=== PATIENT | female | born 1950 | race Hispanic/Latino ===

== ENCOUNTER 2018-09-24 13:16 | Observation (INO) | payer MEDICARE, OTHER, SELFPAY ==
[2018-09-24] VITALS (9 sets, daily range): BP systolic 118–162; BP diastolic 68–81; PULSE 62–72; RESP 12–22; TEMP 36.5–36.6; O2SAT 95–99; BMI 32.1
--- NOTE | 2018-09-24 14:21 | PC.NURSE ---
Patient has long standing history of vertigo. 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 Has felt bilateral ear pressure recently
--- NOTE | 2018-09-24 14:26 | DI.RAD.S_ITS ---
PROCEDURE: XR CHEST 1V INDICATIONS: dizziness TECHNIQUE: One view of the chest was acquired. COMPARISON: None. FINDINGS: Surgical changes and devices: None. Lungs and pleura: Lungs are clear. No pleural effusions or pneumothorax. Mediastinum: Mediastinal contours appear normal. Heart size is mildly enlarged. There is aortic atherosclerosis. Bones and chest wall: No suspicious bony lesions. Overlying soft tissues appear unremarkable. IMPRESSION: Cardiomegaly without overt heart failure. No definite pneumonia. Dictated by: Zhen Boone M.D. on 09/24/2018 at 14:49 Approved by: Zhen Boone M.D. on 09/24/2018 at 14:56
--- NOTE | 2018-09-24 14:26 | DI.CT.S_ITS ---
PROCEDURE: CT HEAD/BRAIN WO CON INDICATIONS: dizzy TECHNIQUE: Noncontrast 4.5 mm thick angled axial sections acquired from the foramen magnum to the vertex, with coronal and sagittal reformats. For radiation dose reduction, the following was used: automated exposure control, adjustment of mA and/or kV according to patient size. COMPARISON: None. FINDINGS: Image quality: Excellent. CSF spaces: Basal cisterns are patent. No extra-axial fluid collections. Ventricles are normal in size and shape. Brain: No midline shift. No intracranial masses or hemorrhage. Zhang-white matter interface is normal. Skull and face: Calvarium and visualized facial bones are intact, without suspicious lesions. Sinuses: Visualized sinuses and mastoids are clear. IMPRESSION: Unremarkable head CT. No acute intracranial hemorrhage. Dictated by: Zhen Boone M.D. on 09/24/2018 at 15:03 Approved by: Zhen Boone M.D. on 09/24/2018 at 15:06
[2018-09-24] MEDS: MECLIZINE HCL 12.5 MG TABLET 25 MG PO ×2 (14:31→15:29)
[2018-09-24] MEDS: ONDANSETRON 4 MG/2 ML INJ IV (14:31)
[2018-09-24 14:58] LABS: Add Manual Diff / Slide Review NO; Basophils Absolute Auto 100 /uL (0-100); Basophils Percent Auto 0.7 % (0-2); Eosinophils Absolute Auto 300 /uL (0-450); Eosinophils Percent Auto 2.9 % (2-4); Hematocrit 45.4 % (36-46); Hemoglobin 15.5 g/dL (12.0-16.0); Lymphocytes Absolute Auto 3300 /uL (1100-4500); Lymphocytes Percent Auto 30.4 % (25-40); Mean Corpuscular HGB Conc 34.3 % (30-36); Mean Corpuscular Hemoglobin 31.3 PG (26-34); Mean Corpuscular Volume 91.3 fL (80-100); Monocytes Absolute Auto 700 /uL (0-900); Monocytes Percent Auto 6.4 % (3-14); Neutrophils Absolute Auto 6400 /uL (1500-7000); Neutrophils Percent Auto 59.6 % (50-75); Platelet Count 197 X10^3/uL (150-400); Red Blood Cell Count 4.97 X10^6/uL (4.0-5.2); Red Cell Distribution Width 13.5 % (11.6-14.8); White Blood Cell Count 10.8 X10^3/uL (4.5-11.0)
[2018-09-24 15:05] LABS: Prothrombin Time 11.8 SECONDS (10.1-12.7)
[2018-09-24 15:11] LABS: Alanine Aminotransferase 38 IU/L (9-52); Albumin 4.4 g/dL (3.5-5.0); Albumin Globulin Ratio 1.2 (1.0-2.8); Alkaline Phosphatase 153 U/L (38-126); Aspartate Aminotransferase 32 IU/L (14-36); BUN Creatinine Ratio 13.8 (6-22); Bilirubin Total 0.6 mg/dL (0.2-1.3); Blood Urea Nitrogen 11 mg/dL (7-17); Calcium 9.6 mg/dL (8.4-10.2); Carbon Dioxide 25 mmol/L (22-32); Chloride 105 mmol/L (98-107); Estimated Glomerular Filt Rate > 60.0 mL/min (>60); Globulin 3.6 g/dL (1.7-4.1); Glucose 109 mg/dL (80-110); HEMOLYSIS < 15 (0-50); Potassium 3.8 mmol/L (3.4-5.1); Sodium 140 mmol/L (137-145)
[2018-09-24 15:22] LABS: Troponin I < 0.012 ng/mL (0.01-0.034)
--- NOTE | 2018-09-24 15:26 | ED.DIZZY ---
HPI - Dizziness <JUDITH Mcdaniel - Last Filed: 09/24/18 20:48> General Chief Complaint: Dizziness Stated Complaint: Vertigo Time Seen by Provider: 09/24/18 14:10 Source: patient, family and EMS Mode of arrival: EMS Limitations: no limitations History of Present Illness HPI Narrative: The patient is a 60-year-old female with history of Meniere's diseaseCurrent smoker who presents with a chief complaint of sudden onset of dizziness. She states she has vertigo every single day. She noticed it was worse when she woke up at 9:00 a.m. this morning. She states she sat in her vertigo resolved a bit. Then she was getting her hair done and had a sudden onset of spinning sensation when she put her head in the back sink to have her hair washed. She denies any chest pain, shortness of breath abdominal pain. She does complain of some nausea. She states her Meniere's disease was diagnosed by an ear nose and throat physicians several years ago. She has not followed up with them. She states she does not take any daily medications for this. She does complain of persistent ?humming noises related to her disease, but those are no worse than usual. She denies any fever. She denies any urinary symptoms. She denies any surgical history of . She states she takes an aspirin a day and that is it. Related Data Previous Rx's Medication Instructions Recorded hydrochlorothiazide 25 mg PO DAILY #30 tab 09/25/18 meclizine 25 mg PO Q6HR PRN #60 tab 09/25/18 ondansetron HCl 4 mg PO Q8HR PRN #30 tab 09/25/18 Allergies Allergy/AdvReac Type Severity Reaction Status Date / Time No Known Drug Allergies Allergy Verified 09/24/18 14:10 Review of Systems <JUDITH Mcdaniel - Last Filed: 09/24/18 20:48> Review of Systems GENERAL: Denies chills, fatigue, malaise, fever, sweats. HEENT: Denies sinus pain, ear pain, sore throat, difficulty swallowing, dizziness. RESPIRATORY: Denies dyspnea, cough, wheezing, hemoptysis, sputum. CARDIOVASCULAR: Denies chest pain, palpitations, orthopnea, edema, GASTROINTESTINAL: See HPI : Denies dysuria, frequency, incontinence, hematuria, urinary retention. MUSCULOSKELETAL: denies weakness, joint pain, or bony pain SKIN: Denies rash, skin lesions, or other NEUROLOGIC: See HPI PSYCHIATRIC: No concerning psychosocial issues. 12 point review of systems is negative except for those stated above PFSH <JUDITH Mcdaniel - Last Filed: 09/24/18 20:48> Medical History Current smoker (Acute) Meniere disease (Acute) Surgical History History of (Acute) Social History household members: spouse Smoking Status: Current some day smoker Social History household members: spouse Smoking Status: Current some day smoker Exam <JUDITH Mcdaniel - Last Filed: 09/24/18 20:48> Narrative Exam Narrative: GENERAL: This is a well-nourished, well-developed patient, appears uncomfortable HEAD: Atraumatic. Normocephalic. No temporal or scalp tenderness. EYES: Pupils equal round and reactive. Extraocular motions intact. No scleral icterus. No injection or drainage. Slight nystagmus noted. ENT: Nose without bleeding, purulent drainage or septal hematoma. Throat without erythema, tonsillar hypertrophy or exudate. Uvula midline. Airway patent. NECK: Trachea midline. No JVD or lymphadenopathy. Supple, nontender, no meningeal signs. CARDIOVASCULAR: Regular rate and rhythm without murmurs, gallops, or rubs. RESPIRATORY: Clear to auscultation. Breath sounds equal bilaterally. No wheezes, rales, or rhonchi. No cough. No increased respiratory effort. No accessory muscle use. GASTROINTESTINAL: Abdomen soft, non-tender, nondistended. No hepato-splenomegaly, or palpable masses. No guarding. EXTREMITIES: No clubbing, cyanosis, or edema. No joint tenderness, effusion, or edema noted. BACK: Nontender without deformity or crepitance. No flank tenderness. NEURO: AOx3. Strength is equal upper and lower extremities bilaterally. No gross cranial nerve deficit. Remote and recent memory intact. Finger-nose test intact. Should heal test intact. Negative Romberg when lying on stretcher SKIN: No rash or erythema. Initial Vital Signs Initial Vital Signs: Vital Signs Temperature 97.9 F 09/24/18 13:25 Pulse Rate 66 09/24/18 13:25 Respiratory Rate 18 09/24/18 13:25 Blood Pressure 160/77 H 09/24/18 13:25 Pulse Oximetry 97 09/24/18 13:25 <Malu Helton DO - Last Filed: 09/28/18 07:43> Narrative Exam Narrative: GENERAL: Alert and oriented x three, obese, well-appearing female in mild distress. HEENT: Head normocephalic, atraumatic, EOMI, pupils reactive, face symmetric, moist mucous membranes, no facial droop. No dysarthria. NECK: Supple, full range of motion CARDIOVASCULAR: Regular rate and rhythm without murmurs, rubs or gallops. RESPIRATORY: Breath sounds equal bilaterally, no wheezes rales or rhonchi. ABDOMEN: Soft, nontender. Normoactive bowel sounds all 4 quadrants. No guarding or rebound, rigidity, no mass EXTREMITIES: Normal range of motion, no clubbing or edema. Neurovascularly intact NEUROLOGICAL: Cranial nerves II through XII grossly intact. Moving all extremities SKIN: Warm, dry, no petechiae, no rashes or lesions. Initial Vital Signs Initial Vital Signs: Vital Signs Temperature 97.9 F 09/24/18 13:25 Pulse Rate 66 09/24/18 13:25 Respiratory Rate 18 09/24/18 13:25 Blood Pressure 160/77 H 09/24/18 13:25 Pulse Oximetry 97 09/24/18 13:25 Scores <KINDRA Mcdaniel-BC - Last Filed: 09/24/18 20:48> GCS [place] coma scale eye opening: Spontaneous [place] coma scale verbal response: Orientated [place] coma scale motor response: Obey commands [place] coma scale total score: 15 NIH Stroke Scale Level of Conciousness: Alert, keenly responsive Ask month/age: Answers both questions correctly. Open/close eyes, close hand: Performs both tasks correctly Best gaze horizontal: Normal Visual lu: No visual loss Facial palsy: Normal symetrical movement Left arm drift: No drift for full 10 sec Right arm drift: No drift for full 10 sec Left leg drift: No drift for full 10 sec Right leg drift: No drift for full 10 sec Limb ataxia: Absent Sensory on face/arms/legs: Normal, no sensory loss Best language: No aphasia, normal Dysarthria: Normal Extinction or inattention: No abnormality Total NIH Stroke scale score: 0 <aMlu Helton DO - Last Filed: 09/28/18 07:43> NIH Stroke Scale Level of Conciousness: Alert, keenly responsive Ask month/age: Answers both questions correctly. Open/close eyes, close hand: Performs both tasks correctly Best gaze horizontal: Normal Visual lu: No visual loss Facial palsy: Normal symetrical movement Left arm drift: No drift for full 10 sec Right arm drift: No drift for full 10 sec Left leg drift: No drift for full 10 sec Right leg drift: No drift for full 10 sec Limb ataxia: Absent Sensory on face/arms/legs: Normal, no sensory loss Best language: No aphasia, normal Dysarthria: Normal Extinction or inattention: No abnormality Total NIH Stroke scale score: 0 Course <KRISTINE Mcdaniel - Last Filed: 09/24/18 20:48> Orders Ordered: Discontinued Medications Acetaminophen (Tylenol) 650 mg PO Q6HR PRN PRN Reason: Fever Aspirin (Aspirin Ec) 81 mg PO DAILY [facility] Last Admin: 09/25/18 09:57 Dose: 81 mg Admin: 09/24/18 21:58 Dose: 81 mg Enoxaparin Sodium (Lovenox) 40 mg SUBCUT DAILY [facility] Last Admin: 09/25/18 09:57 Dose: 40 mg Furosemide (Lasix) 20 mg IV DAILY [facility] Hydrochlorothiazide (Hydrochlorothiazide) 25 mg PO DAILY [facility] Last Admin: 09/25/18 09:57 Dose: 25 mg Sodium Chloride (Normal Saline 0.9%) 1,000 mls @ 100 mls/hr IV CONT [facility] Last Infusion: 09/25/18 09:48 Dose: 0 mls/hr Admin: 09/24/18 21:44 Dose: 100 mls/hr Ibuprofen (Advil) 600 mg PO Q8HR PRN PRN Reason: Headache Last Admin: 09/25/18 17:15 Dose: 600 mg Lorazepam (Ativan) 1 mg PO NOW ONE Stop: 09/24/18 15:51 Last Admin: 09/24/18 16:05 Dose: 1 mg Lorazepam (Ativan) 1 mg IV NOW ONE Stop: 09/24/18 16:48 Last Admin: 09/24/18 17:33 Dose: 1 mg Lorazepam (Ativan) 1 mg PO Q6HR PRN PRN Reason: Vertigo Meclizine HCl (Antivert) 25 mg PO NOW ONE Stop: 09/24/18 14:26 Last Admin: 09/24/18 14:31 Dose: 25 mg Meclizine HCl (Antivert) 25 mg PO NOW ONE Stop: 09/24/18 15:25 Last Admin: 09/24/18 15:29 Dose: 25 mg Meclizine HCl (Antivert) 25 mg PO Q6HR PRN PRN Reason: Vertigo Last Admin: 09/25/18 17:16 Dose: 25 mg Admin: 09/25/18 09:57 Dose: 25 mg Morphine Sulfate (Morphine) 2 mg IV Q4HR PRN PRN Reason: Pain, Moderate (4-6) Naloxone HCl (Narcan) 0.2 mg IV Q2MIN PRN PRN Reason: Opiate Reversal Ondansetron HCl (Zofran) 4 mg IV NOW ONE Stop: 09/24/18 14:26 Last Admin: 09/24/18 14:31 Dose: 4 mg Ondansetron HCl (Zofran) 8 mg IV Q8HR PRN PRN Reason: Nausea And Vomiting Scopolamine (Transderm-Scop) 1 patch TOP NOW ONE Stop: 09/24/18 18:05 Last Admin: 09/24/18 18:19 Dose: 1 patch Scopolamine (Transderm-Scop) 1 patch TOP Q72H [facility] Last Admin: 09/24/18 21:44 Dose: Not Given Vital Signs - 8 hr 09/24/18 13:25 09/24/18 14:09 09/24/18 15:32 Pulse Rate 66 66 62 Respiratory Rate 18 18 20 Blood Pressure 160/77 H 160/77 H Blood Pressure [Left Arm] 160/77 H 154/81 H Pulse Oximetry 97 97 99 09/24/18 16:30 09/24/18 18:30 09/24/18 19:36 Pulse Rate 65 67 65 Respiratory Rate 22 12 15 Blood Pressure Blood Pressure [Left Arm] 162/71 H 118/68 121/77 Pulse Oximetry 95 96 95 09/24/18 20:21 Pulse Rate 72 Respiratory Rate 15 Blood Pressure Blood Pressure [Left Arm] 132/70 Pulse Oximetry 97 <Malu Helton, - Last Filed: 09/28/18 07:43> Orders Ordered: Discontinued Medications Acetaminophen (Tylenol) 650 mg PO Q6HR PRN PRN Reason: Fever Aspirin (Aspirin Ec) 81 mg PO DAILY [facility] Last Admin: 09/25/18 09:57 Dose: 81 mg Admin: 09/24/18 21:58 Dose: 81 mg Enoxaparin Sodium (Lovenox) 40 mg SUBCUT DAILY [facility] Last Admin: 09/25/18 09:57 Dose: 40 mg Furosemide (Lasix) 20 mg IV DAILY [facility] Hydrochlorothiazide (Hydrochlorothiazide) 25 mg PO DAILY [facility] Last Admin: 09/25/18 09:57 Dose: 25 mg Sodium Chloride (Normal Saline 0.9%) 1,000 mls @ 100 mls/hr IV CONT [facility] Last Infusion: 09/25/18 09:48 Dose: 0 mls/hr Admin: 09/24/18 21:44 Dose: 100 mls/hr Ibuprofen (Advil) 600 mg PO Q8HR PRN PRN Reason: Headache Last Admin: 09/25/18 17:15 Dose: 600 mg Lorazepam (Ativan) 1 mg PO NOW ONE Stop: 09/24/18 15:51 Last Admin: 09/24/18 16:05 Dose: 1 mg Lorazepam (Ativan) 1 mg IV NOW ONE Stop: 09/24/18 16:48 Last Admin: 09/24/18 17:33 Dose: 1 mg Lorazepam (Ativan) 1 mg PO Q6HR PRN PRN Reason: Vertigo Meclizine HCl (Antivert) 25 mg PO NOW ONE Stop: 09/24/18 14:26 Last Admin: 09/24/18 14:31 Dose: 25 mg Meclizine HCl (Antivert) 25 mg PO NOW ONE Stop: 09/24/18 15:25 Last Admin: 09/24/18 15:29 Dose: 25 mg Meclizine HCl (Antivert) 25 mg PO Q6HR PRN PRN Reason: Vertigo Last Admin: 09/25/18 17:16 Dose: 25 mg Admin: 09/25/18 09:57 Dose: 25 mg Morphine Sulfate (Morphine) 2 mg IV Q4HR PRN PRN Reason: Pain, Moderate (4-6) Naloxone HCl (Narcan) 0.2 mg IV Q2MIN PRN PRN Reason: Opiate Reversal Ondansetron HCl (Zofran) 4 mg IV NOW ONE Stop: 09/24/18 14:26 Last Admin: 09/24/18 14:31 Dose: 4 mg Ondansetron HCl (Zofran) 8 mg IV Q8HR PRN PRN Reason: Nausea And Vomiting Scopolamine (Transderm-Scop) 1 patch TOP NOW ONE Stop: 09/24/18 18:05 Last Admin: 09/24/18 18:19 Dose: 1 patch Scopolamine (Transderm-Scop) 1 patch TOP Q72H [facility] Last Admin: 09/24/18 21:44 Dose: Not Given Vital Signs - 8 hr 09/24/18 13:25 09/24/18 14:09 09/24/18 15:32 Pulse Rate 66 66 62 Respiratory Rate 18 18 20 Blood Pressure 160/77 H 160/77 H Blood Pressure [Left Arm] 160/77 H 154/81 H Pulse Oximetry 97 97 99 09/24/18 16:30 09/24/18 18:30 09/24/18 19:36 Pulse Rate 65 67 65 Respiratory Rate 22 12 15 Blood Pressure Blood Pressure [Left Arm] 162/71 H 118/68 121/77 Pulse Oximetry 95 96 95 09/24/18 20:21 Pulse Rate 72 Respiratory Rate 15 Blood Pressure Blood Pressure [Left Arm] 132/70 Pulse Oximetry 97 MDM - Dizziness <KINDRA Mcdaniel-FEDERICO - Last Filed: 09/24/18 20:48> Lab Data Result diagrams: 09/24/18 14:50 09/25/18 05:20 Lab Results 09/24/18 09/24/18 09/24/18 Range/Units 14:50 14:50 14:50 WBC 10.8 (4.5-11.0) X10^3/uL RBC 4.97 (4.0-5.2) X10^6/uL Hgb 15.5 (12.0-16.0) g/dL Hct 45.4 (36-46) % MCV 91.3 (80-100) fL MCH 31.3 (26-34) PG MCHC 34.3 (30-36) % RDW 13.5 (11.6-14.8) % Plt Count 197 (150-400) X10^3/uL Neut % (Auto) 59.6 (50-75) % Lymph % (Auto) 30.4 (25-40) % [place] % (Auto) 6.4 (3-14) % Eos % (Auto) 2.9 (2-4) % Baso % (Auto) 0.7 (0-2) % Neut # (Auto) 6400 (4282-1185) /uL Lymph # (Auto) 3300 (9965-6675) /uL [place] # (Auto) 700 (0-900) /uL Eos # (Auto) 300 (0-450) /uL Baso # (Auto) 100 (0-100) /uL PT 11.8 (10.1-12.7) SECONDS INR 1.0 (0.9-1.3) Sodium 140 (137-145) mmol/L Potassium 3.8 (3.4-5.1) mmol/L Chloride 105 (98-107) mmol/L Carbon Dioxide 25 (22-32) mmol/L BUN 11 (7-17) mg/dL Creatinine 0.80 (0.52-1.04) mg/dL Estimated GFR > 60.0 (>60) mL/min BUN/Creatinine Ratio 13.8 (6-22) Glucose 109 (80-110) mg/dL Calcium 9.6 (8.4-10.2) mg/dL Magnesium (1.6-2.3) mg/dL Total Bilirubin 0.6 (0.2-1.3) mg/dL AST 32 (14-36) IU/L ALT 38 (9-52) IU/L Alkaline Phosphatase 153 H (38-126) U/L Troponin I < 0.012 (0.01-0.034) ng/mL Total Protein 8.0 (6.3-8.2) g/dL Albumin 4.4 (3.5-5.0) g/dL Globulin 3.6 (1.7-4.1) g/dL Albumin/Globulin Ratio 1.2 (1.0-2.8) Triglycerides (35-150) mg/dL Cholesterol (140-199) mg/dL LDL Cholesterol, Calc (<100) mg/dL HDL Cholesterol (40-60) mg/dL TSH (0.47-4.68) uIU/mL Urine Color Urine Appearance Urine pH (4.5-8.0) Ur Specific [place] (1.000-1.035) Urine Protein (Negative) Urine Glucose (UA) (Negative) g/dL Urine Ketones (NEGATIVE) Urine Occult Blood (Negative) Urine Nitrate (Negative) Urine Bilirubin (NEGATIVE) Urine Urobilinogen (0.2) E.U./dL Ur Leukocyte Esterase (NEGATIVE) 09/25/18 09/25/18 09/25/18 Range/Units 00:15 05:20 05:20 WBC (4.5-11.0) X10^3/uL RBC (4.0-5.2) X10^6/uL Hgb (12.0-16.0) g/dL Hct (36-46) % MCV (80-100) fL MCH (26-34) PG MCHC (30-36) % RDW (11.6-14.8) % Plt Count (150-400) X10^3/uL Neut % (Auto) (50-75) % Lymph % (Auto) (25-40) % [place] % (Auto) (3-14) % Eos % (Auto) (2-4) % Baso % (Auto) (0-2) % Neut # (Auto) (5627-1083) /uL Lymph # (Auto) (5439-7243) /uL [place] # (Auto) (0-900) /uL Eos # (Auto) (0-450) /uL Baso # (Auto) (0-100) /uL PT (10.1-12.7) SECONDS INR (0.9-1.3) Sodium 140 (137-145) mmol/L Potassium 3.9 (3.4-5.1) mmol/L Chloride 108 H (98-107) mmol/L Carbon Dioxide 26 (22-32) mmol/L BUN 9 (7-17) mg/dL Creatinine 0.70 (0.52-1.04) mg/dL Estimated GFR > 60.0 (>60) mL/min BUN/Creatinine Ratio 12.9 (6-22) Glucose 109 (80-110) mg/dL Calcium 9.0 (8.4-10.2) mg/dL Magnesium 2.0 (1.6-2.3) mg/dL Total Bilirubin (0.2-1.3) mg/dL AST (14-36) IU/L ALT (9-52) IU/L Alkaline Phosphatase (38-126) U/L Troponin I (0.01-0.034) ng/mL Total Protein (6.3-8.2) g/dL Albumin (3.5-5.0) g/dL Globulin (1.7-4.1) g/dL Albumin/Globulin Ratio (1.0-2.8) Triglycerides 205 H (35-150) mg/dL Cholesterol 250 H (140-199) mg/dL LDL Cholesterol, Calc 171 H (<100) mg/dL HDL Cholesterol 38 L (40-60) mg/dL TSH (0.47-4.68) uIU/mL Urine Color Yellow Urine Appearance Clear Urine pH 7.0 (4.5-8.0) Ur Specific [place] 1.010 (1.000-1.035) Urine Protein Negative (Negative) Urine Glucose (UA) Negative (Negative) g/dL Urine Ketones Negative (NEGATIVE) Urine Occult Blood Negative (Negative) Urine Nitrate Negative (Negative) Urine Bilirubin Negative (NEGATIVE) Urine Urobilinogen 0.2 (0.2) E.U./dL Ur Leukocyte Esterase Negative (NEGATIVE) 09/25/18 Range/Units 05:20 WBC (4.5-11.0) X10^3/uL RBC (4.0-5.2) X10^6/uL Hgb (12.0-16.0) g/dL Hct (36-46) % MCV (80-100) fL MCH (26-34) PG MCHC (30-36) % RDW (11.6-14.8) % Plt Count (150-400) X10^3/uL Neut % (Auto) (50-75) % Lymph % (Auto) (25-40) % [place] % (Auto) (3-14) % Eos % (Auto) (2-4) % Baso % (Auto) (0-2) % Neut # (Auto) (6389-5460) /uL Lymph # (Auto) (7529-4711) /uL [place] # (Auto) (0-900) /uL Eos # (Auto) (0-450) /uL Baso # (Auto) (0-100) /uL PT (10.1-12.7) SECONDS INR (0.9-1.3) Sodium (137-145) mmol/L Potassium (3.4-5.1) mmol/L Chloride (98-107) mmol/L Carbon Dioxide (22-32) mmol/L BUN (7-17) mg/dL Creatinine (0.52-1.04) mg/dL Estimated GFR (>60) mL/min BUN/Creatinine Ratio (6-22) Glucose (80-110) mg/dL Calcium (8.4-10.2) mg/dL Magnesium (1.6-2.3) mg/dL Total Bilirubin (0.2-1.3) mg/dL AST (14-36) IU/L ALT (9-52) IU/L Alkaline Phosphatase (38-126) U/L Troponin I (0.01-0.034) ng/mL Total Protein (6.3-8.2) g/dL Albumin (3.5-5.0) g/dL Globulin (1.7-4.1) g/dL Albumin/Globulin Ratio (1.0-2.8) Triglycerides (35-150) mg/dL Cholesterol (140-199) mg/dL LDL Cholesterol, Calc (<100) mg/dL HDL Cholesterol (40-60) mg/dL TSH 1.70 (0.47-4.68) uIU/mL Urine Color Urine Appearance Urine pH (4.5-8.0) Ur Specific [place] (1.000-1.035) Urine Protein (Negative) Urine Glucose (UA) (Negative) g/dL Urine Ketones (NEGATIVE) Urine Occult Blood (Negative) Urine Nitrate (Negative) Urine Bilirubin (NEGATIVE) Urine Urobilinogen (0.2) E.U./dL Ur Leukocyte Esterase (NEGATIVE) Urine Dip Bedside Urine Glucose Negative Bedside Urine Bilirubin - Negative Bedside Urine Ketone - Negative Urine Specific [place] 1.015 Bedside Urine Occult Blood - Negative Bedside Urine pH 6 Bedside Urine Protein - Negative Bedside Urine Urobilinogen - Negative Bedside Urine Nitrite - Negative Bedside Urine Leukocytes - Negative Esterase Imaging Data CT scan - head: Radiologist's impression: Danya Baez 68 F [address] [address] [address] Scan Report Signed Patient: Danya BaezMR#: [id number] : 1950Acct:[id number] Age/Sex: 68 / FDate of Service: 09/24/18 Loc: ED Accession Number: [id number] Procedure: CT head/brain wo con Ordering Provider: Malu Hollins PROCEDURE: CT HEAD/BRAIN WO CON INDICATIONS: dizzy TECHNIQUE: Noncontrast 4.5 mm thick angled axial sections acquired from the foramen magnum to the vertex, with coronal and sagittal reformats. For radiation dose reduction, the following was used: automated exposure control, adjustment of mA and/or kV according to patient size. COMPARISON: None. FINDINGS: Image quality: Excellent. CSF spaces: Basal cisterns are patent. No extra-axial fluid collections. Ventricles are normal in size and shape. Brain: No midline shift. No intracranial masses or hemorrhage. Zhang-white matter interface is normal. Skull and face: Calvarium and visualized facial bones are intact, without suspicious lesions. Sinuses: Visualized sinuses and mastoids are clear. IMPRESSION: Unremarkable head CT. No acute intracranial hemorrhage. Dictated by: Zhen Boone M.D. on 09/24/2018 at 15:03 Approved by: Zhen Boone M.D. on 09/24/2018 at 15:06 Chest x-ray: Radiologist's impression: Danya Baez 68 F [address] [address] XRay Report Signed Patient: Danya BaezMR#: [id number] : 1950Acct:[id number] Age/Sex: 68 / FDate of Service: 09/24/18 Loc: ED Accession Number: [id number] Procedure: XR chest 1V Ordering Provider: Malu Hollins PROCEDURE: XR CHEST 1V INDICATIONS: dizziness TECHNIQUE: One view of the chest was acquired. COMPARISON: None. FINDINGS: Surgical changes and devices: None. Lungs and pleura: Lungs are clear. No pleural effusions or pneumothorax. Mediastinum: Mediastinal contours appear normal. Heart size is mildly enlarged. There is aortic atherosclerosis. Bones and chest wall: No suspicious bony lesions. Overlying soft tissues appear unremarkable. IMPRESSION: Cardiomegaly without overt heart failure. No definite pneumonia. Dictated by: Zhen Boone M.D. on 09/24/2018 at 14:49 Approved by: Zhen Boone M.D. on 09/24/2018 at 14:56 ECG Data Attestation: I personally reviewed and interpreted this ECG as follows: Interpretation: Sinus rhythm. Ventricular rate 60. No ST elevation or depression noted. No ectopy noted. Viewed by Dr. Helton at 1501 pr 156 MDM Narrative Medical decision making narrative: Patient is a 68-year-old female history of Meniere's disease who presents with a chief complaint of dizziness and vertigo symptoms. She has a negative troponin, negative head CT, negative chest x-ray negative UA and grossly normal lab work. She is overall benign neurological exam. She is given 2 doses of meclizine, fluids and p.o. Ativan at for her symptoms. She vomited after all this and was given IV Ativan. She had persistent spinning sensation. Given my concerns, I asked Dr Helton to evaluate the patient as well. I spoke with Dr. sepulveda regarding admitting patient she was unable to ambulate and unable to keep down fluids. She requested scopolamine patch as well as Marly's maneuvers prior to admitting the patient. Scopolamine patch was applied and Marly's maneuvers were performed with no improvement. I then spoke with Jewel SINCLAIR, who came to evaluate the patient and accepted her for admission. Patient states agreement with admission has no questions or concerns. <Malu Helton, DO - Last Filed: 09/28/18 07:43> Lab Data Attestation: I reviewed the patient's lab results. Lab Results 09/24/18 09/24/18 09/24/18 Range/Units 14:50 14:50 14:50 WBC 10.8 (4.5-11.0) X10^3/uL RBC 4.97 (4.0-5.2) X10^6/uL Hgb 15.5 (12.0-16.0) g/dL Hct 45.4 (36-46) % MCV 91.3 (80-100) fL MCH 31.3 (26-34) PG MCHC 34.3 (30-36) % RDW 13.5 (11.6-14.8) % Plt Count 197 (150-400) X10^3/uL Neut % (Auto) 59.6 (50-75) % Lymph % (Auto) 30.4 (25-40) % [place] % (Auto) 6.4 (3-14) % Eos % (Auto) 2.9 (2-4) % Baso % (Auto) 0.7 (0-2) % Neut # (Auto) 6400 (8293-1297) /uL Lymph # (Auto) 3300 (3377-3337) /uL [place] # (Auto) 700 (0-900) /uL Eos # (Auto) 300 (0-450) /uL Baso # (Auto) 100 (0-100) /uL PT 11.8 (10.1-12.7) SECONDS INR 1.0 (0.9-1.3) Sodium 140 (137-145) mmol/L Potassium 3.8 (3.4-5.1) mmol/L Chloride 105 (98-107) mmol/L Carbon Dioxide 25 (22-32) mmol/L BUN 11 (7-17) mg/dL Creatinine 0.80 (0.52-1.04) mg/dL Estimated GFR > 60.0 (>60) mL/min BUN/Creatinine Ratio 13.8 (6-22) Glucose 109 (80-110) mg/dL Calcium 9.6 (8.4-10.2) mg/dL Magnesium (1.6-2.3) mg/dL Total Bilirubin 0.6 (0.2-1.3) mg/dL AST 32 (14-36) IU/L ALT 38 (9-52) IU/L Alkaline Phosphatase 153 H (38-126) U/L Troponin I < 0.012 (0.01-0.034) ng/mL Total Protein 8.0 (6.3-8.2) g/dL Albumin 4.4 (3.5-5.0) g/dL Globulin 3.6 (1.7-4.1) g/dL Albumin/Globulin Ratio 1.2 (1.0-2.8) Triglycerides (35-150) mg/dL Cholesterol (140-199) mg/dL LDL Cholesterol, Calc (<100) mg/dL HDL Cholesterol (40-60) mg/dL TSH (0.47-4.68) uIU/mL Urine Color Urine Appearance Urine pH (4.5-8.0) Ur Specific [place] (1.000-1.035) Urine Protein (Negative) Urine Glucose (UA) (Negative) g/dL Urine Ketones (NEGATIVE) Urine Occult Blood (Negative) Urine Nitrate (Negative) Urine Bilirubin (NEGATIVE) Urine Urobilinogen (0.2) E.U./dL Ur Leukocyte Esterase (NEGATIVE) 09/25/18 09/25/18 09/25/18 Range/Units 00:15 05:20 05:20 WBC (4.5-11.0) X10^3/uL RBC (4.0-5.2) X10^6/uL Hgb (12.0-16.0) g/dL Hct (36-46) % MCV (80-100) fL MCH (26-34) PG MCHC (30-36) % RDW (11.6-14.8) % Plt Count (150-400) X10^3/uL Neut % (Auto) (50-75) % Lymph % (Auto) (25-40) % [place] % (Auto) (3-14) % Eos % (Auto) (2-4) % Baso % (Auto) (0-2) % Neut # (Auto) (1413-3116) /uL Lymph # (Auto) (8102-8368) /uL [place] # (Auto) (0-900) /uL Eos # (Auto) (0-450) /uL Baso # (Auto) (0-100) /uL PT (10.1-12.7) SECONDS INR (0.9-1.3) Sodium 140 (137-145) mmol/L Potassium 3.9 (3.4-5.1) mmol/L Chloride 108 H (98-107) mmol/L Carbon Dioxide 26 (22-32) mmol/L BUN 9 (7-17) mg/dL Creatinine 0.70 (0.52-1.04) mg/dL Estimated GFR > 60.0 (>60) mL/min BUN/Creatinine Ratio 12.9 (6-22) Glucose 109 (80-110) mg/dL Calcium 9.0 (8.4-10.2) mg/dL Magnesium 2.0 (1.6-2.3) mg/dL Total Bilirubin (0.2-1.3) mg/dL AST (14-36) IU/L ALT (9-52) IU/L Alkaline Phosphatase (38-126) U/L Troponin I (0.01-0.034) ng/mL Total Protein (6.3-8.2) g/dL Albumin (3.5-5.0) g/dL Globulin (1.7-4.1) g/dL Albumin/Globulin Ratio (1.0-2.8) Triglycerides 205 H (35-150) mg/dL Cholesterol 250 H (140-199) mg/dL LDL Cholesterol, Calc 171 H (<100) mg/dL HDL Cholesterol 38 L (40-60) mg/dL TSH (0.47-4.68) uIU/mL Urine Color Yellow Urine Appearance Clear Urine pH 7.0 (4.5-8.0) Ur Specific [place] 1.010 (1.000-1.035) Urine Protein Negative (Negative) Urine Glucose (UA) Negative (Negative) g/dL Urine Ketones Negative (NEGATIVE) Urine Occult Blood Negative (Negative) Urine Nitrate Negative (Negative) Urine Bilirubin Negative (NEGATIVE) Urine Urobilinogen 0.2 (0.2) E.U./dL Ur Leukocyte Esterase Negative (NEGATIVE) 09/25/18 Range/Units 05:20 WBC (4.5-11.0) X10^3/uL RBC (4.0-5.2) X10^6/uL Hgb (12.0-16.0) g/dL Hct (36-46) % MCV (80-100) fL MCH (26-34) PG MCHC (30-36) % RDW (11.6-14.8) % Plt Count (150-400) X10^3/uL Neut % (Auto) (50-75) % Lymph % (Auto) (25-40) % [place] % (Auto) (3-14) % Eos % (Auto) (2-4) % Baso % (Auto) (0-2) % Neut # (Auto) (0654-6343) /uL Lymph # (Auto) (6741-2562) /uL [place] # (Auto) (0-900) /uL Eos # (Auto) (0-450) /uL Baso # (Auto) (0-100) /uL PT (10.1-12.7) SECONDS INR (0.9-1.3) Sodium (137-145) mmol/L Potassium (3.4-5.1) mmol/L Chloride (98-107) mmol/L Carbon Dioxide (22-32) mmol/L BUN (7-17) mg/dL Creatinine (0.52-1.04) mg/dL Estimated GFR (>60) mL/min BUN/Creatinine Ratio (6-22) Glucose (80-110) mg/dL Calcium (8.4-10.2) mg/dL Magnesium (1.6-2.3) mg/dL Total Bilirubin (0.2-1.3) mg/dL AST (14-36) IU/L ALT (9-52) IU/L Alkaline Phosphatase (38-126) U/L Troponin I (0.01-0.034) ng/mL Total Protein (6.3-8.2) g/dL Albumin (3.5-5.0) g/dL Globulin (1.7-4.1) g/dL Albumin/Globulin Ratio (1.0-2.8) Triglycerides (35-150) mg/dL Cholesterol (140-199) mg/dL LDL Cholesterol, Calc (<100) mg/dL HDL Cholesterol (40-60) mg/dL TSH 1.70 (0.47-4.68) uIU/mL Urine Color Urine Appearance Urine pH (4.5-8.0) Ur Specific [place] (1.000-1.035) Urine Protein (Negative) Urine Glucose (UA) (Negative) g/dL Urine Ketones (NEGATIVE) Urine Occult Blood (Negative) Urine Nitrate (Negative) Urine Bilirubin (NEGATIVE) Urine Urobilinogen (0.2) E.U./dL Ur Leukocyte Esterase (NEGATIVE) Urine Dip Bedside Urine Glucose Negative Bedside Urine Bilirubin - Negative Bedside Urine Ketone - Negative Urine Specific [place] 1.015 Bedside Urine Occult Blood - Negative Bedside Urine pH 6 Bedside Urine Protein - Negative Bedside Urine Urobilinogen - Negative Bedside Urine Nitrite - Negative Bedside Urine Leukocytes - Negative Esterase Imaging Data CT scan - head: Radiologist's impression: [address] [place] [address] CT Scan Report Signed Patient: Danya Baez#: [id number] : 1950Acct:[id number] Age/Sex: 68 / FDate of Service: 09/24/18 Loc: ED Accession Number: [id number] Procedure: CT head/brain wo con Ordering Provider: Malu Hollins [facility] PROCEDURE: CT HEAD/BRAIN WO CON INDICATIONS: dizzy TECHNIQUE: Noncontrast 4.5 mm thick angled axial sections acquired from the foramen magnum to the vertex, with coronal and sagittal reformats. For radiation dose reduction, the following was used: automated exposure control, adjustment of mA and/or kV according to patient size. COMPARISON: None. FINDINGS: Image quality: Excellent. CSF spaces: Basal cisterns are patent. No extra-axial fluid collections. Ventricles are normal in size and shape. Brain: No midline shift. No intracranial masses or hemorrhage. Zhang-white matter interface is normal. Skull and face: Calvarium and visualized facial bones are intact, without suspicious lesions. Sinuses: Visualized sinuses and mastoids are clear. IMPRESSION: Unremarkable head CT. No acute intracranial hemorrhage. Dictated by: Zhen Boone M.D. on 09/24/2018 at 15:03 Approved by: Zhen Boone M.D. on 09/24/2018 at 15:06 ECG Data Attestation: I personally reviewed and interpreted this ECG as follows: Prior ECG tracings: not available for review Interpretation: Sinus rhythm no ST elevation or depression is appreciated. Patient appears have a Q-wave in 3 and AVF. No prior EKGs available. MDM Narrative Medical decision making narrative: Patient was seen and evaluated by myself in addition to the nurse practitioner, CT of the head was negative, patient has symptoms any time she tries to turn or move her head. Neurologic evaluation which was performed by myself an NIH was 0. Patient's history was reviewed as well as her ROS. And physically examined as above. Patient has not been able to tolerate orals, plan for admission. Was discussed with hospitalist who requested school palatine patch as well as Apley's maneuver. These were performed and patient continued to be symptomatic. Patient states she has a history of many years, her symptoms have been very mild this is 1 of her worst episodes. She was diagnosed many years ago and does not follow regularly with the ENT and we discussed that she may benefit from recurrent evaluation. Discharge Plan Departure Patient Disposition: Admitted as Observation Clinical Impression: Dizziness Discharge Date/Time: 09/24/18 20:15 Interventions: ED Discharge Assessment Last Done: 09/24/18 20:15 Instructions: Benign Paroxysmal Positional Vertigo, DI for Meniere's Disease, Low-Sodium Diet Referrals: Malena Dobson ARNP [Non-Staff] - 1 Week Admit Date/Time: 09/24/18 20:16 Admit Provider: Cabrera Holloway <Malu Helton DO - Last Filed: 09/28/18 07:43> Cosign ED Attending Cosignature Attestation: I was immediately available in the department for consultatio, case was discussed. Patient was seen and evaluated and agree with plan for admission. This documentation has been reviewed and I agree with assessment and plan. Supervised by Malu Helton DO
[2018-09-24] MEDS: LORazepam 0.5 MG TABLET 1 MG PO (16:05)
--- NOTE | 2018-09-24 16:44 | PC.NURSE ---
Patient assisted with two person assistance to bedside commode. Patient very dizzy and nauseated with movement to the commode. Patient vomited approx 250cc bile when back into bed. Provider aware.
[2018-09-24] MEDS: LORazepam 2 MG/ML INJ 1 MG IV (17:33)
[2018-09-24] MEDS: SCOPOLAMINE 1 PATCH TOP (18:19)
--- NOTE | 2018-09-24 20:11 | PC.NURSE ---
admitting provider at bedside.
--- NOTE | 2018-09-24 20:43 | DI.MRI.S_ITS ---
PROCEDURE: MR STROKE Pre- and post-contrast brain MRI, non-contrast brain MR angiogram, pre- and postcontrast neck MR angiogram INDICATIONS: severe vertigo, vomiting TECHNIQUE: Brain: Noncontrast axial T1 spin echo, axial T2 fast spin echo, sagittal and axial FLAIR, coronal T2 fast spin echo, axial gradient echo, axial diffusion and ADC through the brain. After the administration of contrast, axial 3D VIBE of the cranial vasculature and brain. Brain MRA: Non-contrast 3-D time of flight MR angiogram, with multiple rexxjpd-hzzrzaqcf-fnarnjqpnp (MIP) reformats performed. Neck MRA: Axial and sagittal TruFISP through the neck. Coronal dynamic MR angiogram during administration of contrast in the arterial and venous phases, with 3-dimenstional msnahye-nonalwthm-gvbgdnydbv (MIP) reformats constructed from subtraction images. COMPARISON: [facility], CT, CT ANGIO HEAD AND NECK, 09/24/2018, 22:19. FINDINGS: Image quality: Excellent. BRAIN: CSF spaces: Ventricles are normal in size and shape. Basal cisterns are patent. No extra-axial fluid collections. Brain: No intracranial bleeds or mass effects. Zhang-white matter interface is normal. Diffusion weighted images show no acute ischemic insults. Brainstem appears normal. Normal intravascular flow voids are present. No abnormal intracranial enhancement. Skull and face: Calvarial marrow signal is normal. Orbits appear normal. Sinuses: Sinuses and mastoids are clear. BRAIN MR ANGIOGRAM: Anterior circulation: Intracranial internal carotid arteries are normal in size and enhancement. The flow within the paired anterior cerebral arteries is normal and symmetric. The flow within the middle cerebral arteries is normal and symmetric. The anterior communicating artery is seen. No stenoses, occlusions, or aneurysms. Posterior circulation: The visualized portions of the vertebral arteries demonstrate normal caliber, and join to form a normal appearing basilar artery. The flow within the posterior cerebral arteries is normal and symmetric. No stenoses, occlusions, or aneurysms. NECK MR ANGIOGRAM: Carotids: Great vessels demonstrate a conventional anatomy as they arise from the aortic arch. The origins of the common carotid arteries appear patent. The calibers and courses of both common carotid arteries are normal. The bifurcation regions appear normal bilaterally. The internal carotid arteries demonstrate normal course and caliber. Posterior circulation: The right vertebral artery origin is patent. Moderate left vertebral artery origin stenosis. More superior portions of both vertebral arteries demonstrate normal course and caliber, and join to form a normal appearing basilar artery. Miscellaneous: Subclavian arteries appear patent. Pre-contrast images through the neck show no soft tissue abnormalities. IMPRESSION: BRAIN MRI: 1. Negative evaluation of the brain. 2. No recent infarct. 3. No explanation for vertigo, nor emesis. BRAIN MR ANGIOGRAM: Negative cerebral MR angiography. NECK MR ANGIOGRAM: 1. No internal carotid artery stenosis. 2. Patent bilateral vertebral arteries. Dictated by: Whitley Garcia M.D. on 09/25/2018 at 13:34 Approved by: Whitley Garcia M.D. on 09/25/2018 at 13:39
--- NOTE | 2018-09-24 21:34 | P.HP_ITS ---
History of Present Illness Date Patient Seen: 09/24/18 Time Patient Seen: 20:03 Chief complaint: Vertigo Narrative: Ms. Danya Baez is a 68-year-old female with her only prior medical history being Meniere's disease who presents to the ER for severe vertigo with associated nausea with any movement. The patient reports she has a history of daily vertigo upon 1st getting up in the morning that lasts typically a few seconds but definitely less than 1 minute after which she go about her day and normal activities without further episodes. She states today she woke with her vertigo but states it was much worse than typical and lasted longer but resolved spontaneously. She went about her day without further episodes however went for hair appointment and when she was laid back in the chair she experienced severe onset of vertigo with associated nausea and vomiting prompting call to EMS. The patient states that after the onset of vertigo she developed headache she describes at the back of her head. She also has dull neck pain but states this is been present for over a month but when she rubs her neck she will see stars. She denies history of migraines or complaints of visual or hearing changes, has no ataxia or complaints of orthostasis. She has had no head trauma and denies fevers or chills, no recent cold symptoms, nasal congestion or sore throat. She denies chest pain or palpitations and has no shortness of breath cough or wheezing. She has had no abdominal pain and nausea started today only with the vertigo. She denies constipation or diarrhea and has no dysuria. Upon arrival in the ER the patient was afebrile with a temperature of 97.9?, heart rate of 66, blood pressure 160/77, respirations of 18 with a room air oxygenation at 97%. In the ER the patient underwent head CT that was unremarkable with no findings for intercranial pathology. She also had a chest x-ray which demonstrated a mildly enlarged heart but no indications of heart failure. Laboratory studies find a normal CBC with a white count of 10.8 with no shift, hemoglobin of 15.5, hematocrit 45.4, platelets of 197. Her electrolytes are within normal range in she has good renal function with a BUN of 11 and creatinine 0.8 with a nonfasting glucose of 109. She has a total bilirubin of 0.6, AST of 32, ALT of 38 and mildly elevated alkaline phosphatase of 153. Troponin was evaluated which is found to be ill less than 0.012. Twelve leak EKG finds a normal sinus rhythm without evidence of ST or T-wave ischemic changes. Her PT is 11.8 with an INR of 1.0. Patient has received meclizine without improvement followed by Zofran and Ativan without changes in presentation. She had a scopolamine patch applied and an Marly maneuver performed. Neurological exam reported by the ED provider is negative for any localizing symptoms. Patient History Medical History Current smoker (Acute) Meniere disease (Acute) Surgical History History of (Acute) Social History household members: spouse Smoking Status: Current some day smoker Family & Social History Safety & Behavioral: Feels Safe in Current Yes Environment Been Physically Hurt or No Threatened By a Person Tobacco & Substance use: Smoking Status Current some day smoker alcohol intake frequency holiday/special occasion Substance Use Type does not use Comment: The patient lives in a single family home with her . Her father still living and has had neurological symptoms unknown if CVA or TIA with family stating he is well now. Her mother has and had a history of diabetes and chronic kidney disease. She has 4 brothers and 5 sisters, 1 of whom has had pacemaker and other with seizures and other who has vertigo. Smoking: Patient reports smoking 1 pack per 2 weeks for approximately 5 years. Alcohol: Patient reports occasional alcohol consumption. Substance use: The patient denies recreational pharmaceuticals, herbal or cannabis products. Advanced directive: In direct discussion with the patient she states her desire to be a FULL CODE. She designates her to be her surrogate decision maker. Meds Home Medications Medication Instructions Recorded Confirmed Type No Known Home Medications 09/24/18 09/24/18 History Allergies Allergy/AdvReac Type Severity Reaction Status Date / Time No Known Drug Allergies Allergy Verified 09/24/18 14:10 Review of Systems Review of Systems All systems reviewed & are unremarkable except as noted in HPI and below Exam Vital Signs (past 8 hours): - 09/24/18 13:25 09/24/18 14:09 09/24/18 15:32 Temperature 97.9 F Pulse Rate 66 66 62 Respiratory Rate 18 18 20 Blood Pressure 160/77 H 160/77 H Blood Pressure [Left Arm] 160/77 H 154/81 H Pulse Oximetry 97 97 99 09/24/18 16:30 09/24/18 18:30 09/24/18 19:36 Temperature Pulse Rate 65 67 65 Respiratory Rate 22 12 15 Blood Pressure Blood Pressure [Left Arm] 162/71 H 118/68 121/77 Pulse Oximetry 95 96 95 09/24/18 20:21 09/24/18 20:40 Temperature 97.7 F Pulse Rate 72 69 Respiratory Rate 15 20 Blood Pressure 145/80 H Blood Pressure [Left Arm] 132/70 Pulse Oximetry 97 97 Oxygen Delivery Method Room Air Oxygen Flow Rate 0 Narrative Exam Narrative: GENERAL APPEARANCE: well developed, over weight female who is afebrile and uncomfortable appearing. HEAD: Normocephalic, atraumatic, no scalp lesions. EYES: pupils equal, round, reactive to light and accommodation, sclera non- icteric, bilateral fundi grossly normal, extraocular movement intact without nystagmus or precipitation of nausea. EARS: normal external structures, no ear pain, TM are pearly and translucent. NOSE: sinuses non tender to percussion, no rhinorrhea ORAL CAVITY: mucosa moist without lesions or exudate, palate normal, tongue in midline. THROAT: normal, no erythema, no exudate, pharynx normal, uvula midline. NECK/THYROID: Full ROM neck, no palpable muscle spasms, no jugular venous distention, no carotid bruit, no thyromegaly, trachea midline. LYMPH NODES: no cervical or supraclavicular lymphadenopathy. SKIN: warm and dry, no suspicious lesions, no rashes, good turgor. HEART: regular rate and rhythm, S1-S2 without murmur, no rubs or gallops, brisk capillary refill, no edema LUNGS: clear to auscultation bilaterally, no coarseness crackles or wheezing, no cough present CHEST: Symmetrical movement, no accessory muscle use, no pain to AP and lateral compression. ABDOMEN: Soft, no distention, no abdominal tenderness on palpation, no guarding or peritoneal signs, no organomegaly, no flank or suprapubic tenderness, active bowel tones. BACK: Nontender to palpation EXTREMITIES: moves all extremities, strength is 5/5 and symmetrical, no deformities or joint effusions. NEUROLOGIC: AAO x4, no focal neurologic deficits, NIH score is 0, cranial nerves II-XII grossly intact , negitive Kernig and Brudinski signs, motor strength normal upper and lower extremities without drift, automation architect equal bilateral, sensory exam intact to light touch, hearing grossly normal to speech. PSYCH: alert, cognitive function intact, good eye contact, appropriate with stable behavior Objective Labs Result Diagrams: 09/24/18 14:50 09/24/18 14:50 Labs: Laboratory Results - last 24 hr 09/24/18 09/24/18 09/24/18 14:50 14:50 14:50 WBC 10.8 RBC 4.97 Hgb 15.5 Hct 45.4 MCV 91.3 MCH 31.3 MCHC 34.3 RDW 13.5 Plt Count 197 Neut % (Auto) 59.6 Lymph % (Auto) 30.4 [place] % (Auto) 6.4 Eos % (Auto) 2.9 Baso % (Auto) 0.7 Neut # (Auto) 6400 Lymph # (Auto) 3300 [place] # (Auto) 700 Eos # (Auto) 300 Baso # (Auto) 100 PT 11.8 INR 1.0 Sodium 140 Potassium 3.8 Chloride 105 Carbon Dioxide 25 BUN 11 Creatinine 0.80 Estimated GFR > 60.0 BUN/Creatinine Ratio 13.8 Glucose 109 Calcium 9.6 Total Bilirubin 0.6 AST 32 ALT 38 Alkaline Phosphatase 153 H Troponin I < 0.012 Total Protein 8.0 Albumin 4.4 Globulin 3.6 Albumin/Globulin Ratio 1.2 Assessment & Plan Assessment & Plan narrative: This is a 68-year-old female who is admitted to the hospital for severe of vertigo unresponsive to medications with associated nausea with movement. 1. Acute on chronic vertigo, present on admission. -patient has a history of Meniere's disease that has been stable, worsening of symptoms starting at 9:00 a.m. this morning upon waking last known normal was last night. -Patient has been afebrile with no recent complaints of illness and has had no vision or hearing changes, no ataxia or lateralizing symptoms. No history of migraines. -head CT is negative finding no intracranial pathology. Laboratory analysis shows a normal white count with no shift, patient is afebrile. -differential diagnosis includes: CVA versus TIA, will obtain a CTA of the head and neck, case reviewed with [place] neurology team. ABCD2 score is 4, NIH score is 0. Migraine headache, positive complaint of occipital headache with no prior history migraines, no aura. Viral labyrinthitis, no recent complaints of URI, changes in hearing or ear pain, otological exam is negative Benign positional vertigo versus exacerbation of Meniere's, no history of triggering events i.e. trauma, otitis or viral infection -serial neurological status checks. -scopolamine patch is in place applied in the ER to be change in 72 hours. -lorazepam 1 mg p.o. q.6 hours as needed vertigo -physical therapy to consult and treat, consider repeat Marly maneuver that failed in the ER. -stat CTA -MR stroke protocol 2. Acute nausea and vomiting, present on admission. -nausea is associated with vertigo precipitated by movement. -patient was unresponsive to meclizine or scopolamine patch. -Zofran 8 mg every 6 hours as needed for nausea. -patient is NPO. -normal saline 100 cc/hour. 3. Current smoker, active. -patient endorses history of smoking 1 pack per 2 weeks for 5 years. -discussed smoking in relation to risks associated with a family history cardiovascular and cerebrovascular disease. -patient is entertaining thought of quitting. The patient is admitted to the hospital due to the severity of her symptoms, risk of complications and adverse events. The patient is admitted as observation status with expected length of stay to be less than 2 midnights. Time Spent With Patient Time with patient: 25 - 35 minutes Scores GCS [place] coma scale eye opening: Spontaneous [place] coma scale verbal response: Orientated [place] coma scale motor response: Obey commands [place] coma scale total score: 15 ABCD2 Age >= 60 years: yes Initial BP. Either SBP >= 140 or DBP >= 90.: yes Clinical features of the TIA: other symptoms Duration of symptoms: >= 60 minutes History of diabetes: no ABCD2 Score: 4 NIHSS Level of Conciousness: Alert, keenly responsive Ask month/age: Answers both questions correctly. Open/close eyes, close hand: Performs both tasks correctly Best gaze horizontal: Normal Visual lu: No visual loss Facial palsy: Normal symetrical movement Left arm drift: No drift for full 10 sec Right arm drift: No drift for full 10 sec Left leg drift: No drift for full 10 sec Right leg drift: No drift for full 10 sec Limb ataxia: Absent Sensory on face/arms/legs: Normal, no sensory loss Best language: No aphasia, normal Dysarthria: Normal Extinction or inattention: No abnormality Total NIH Stroke scale score: 0
[2018-09-24] MEDS: SODIUM CHLORIDE 0.9% 1,000 ML 100 ML IV (21:44)
--- NOTE | 2018-09-24 21:56 | DI.CT.S_ITS ---
PROCEDURE: CT ANGIO HEAD AND NECK INDICATIONS: severe vertigo, nausea, headache, concern for vertebral artery lesion TECHNIQUE: Pre-contrast 4.5 mm thick sections acquired from the foramen magnum to the vertex. After the administration of intravenous contrast, 1 mm thick sections acquired from the aortic arch through the [place] of [place]. Post-contrast 4.5 mm thick sections then re-acquired from the foramen magnum to the vertex. 3-dimensional ynppnlu-rbezoernn-hmbqtaabmf (MIP) and/or volume rendering reformats were acquired of the central intracranial vasculature and neck separately. COMPARISON: None. FINDINGS: Image quality: Excellent. BRAIN: CSF spaces: Ventricles are normal in size and shape. Basal cisterns are patent. No extra-axial fluid collections. Brain: No midline shift. No intracranial bleeds or masses. Zhang-white matter interface appears intact. Skull and face: Calvarium and facial bones appear intact, without suspicious lesions. Orbits appear normal. Sinuses: Sinuses and mastoids are clear. HEAD CT ANGIOGRAPHY: Anterior circulation: Intracranial internal carotid arteries are normal in flow. Atherosclerotic calcifications noted in the cavernous segments of the internal carotid arteries bilaterally and in the lacerum segment of the right internal carotid artery which causes mild stenosis. The flow within the paired anterior cerebral arteries is normal and symmetric. The flow within the middle cerebral arteries is normal and symmetric. The anterior communicating artery is seen. No aneurysms are seen. Posterior circulation: Visualized portions of the vertebral arteries demonstrate normal caliber, and join to form a normal appearing basilar artery. Flow within the posterior cerebral arteries is normal and symmetric. No aneurysms are seen. Dural sinuses demonstrate normal postcontrast enhancement. NECK CT ANGIOGRAPHY: Carotid system: The great vessels demonstrate a conventional anatomy as they arise from the aortic arch. The origins of the common carotid arteries appear patent. The common carotid arteries demonstrate normal caliber and courses. The bifurcation regions are both widely patent. The internal carotid arteries demonstrate normal calibers and courses. Posterior circulation: The origins of the vertebral arteries both appear widely patent. The more superior extracranial portions of both vertebral arteries also demonstrate normal courses and calibers. They join to form a normal appearing basilar artery. Soft tissues: Visualized neck soft tissues demonstrate no suspicious abnormalities. Bones: No suspicious bony lesions. Spine degenerative disc disease and facet arthropathy. Visualized cervical spine appears normally aligned. IMPRESSION: 1. No acute intracranial disease process. 2. No large vessel occlusion, hemodynamically significant vascular stenosis, vascular dissection or aneurysm. Any quantitative measurements of stenosis were performed using NASCET criteria. Dictated by: Jocelin Dejesus MD, PhD on 09/25/2018 at 8:21 Approved by: Jocelin Dejesus MD, PhD on 09/25/2018 at 8:30
[2018-09-24] MEDS: ASPIRIN EC 81 MG TABLET PO (21:58)
--- NOTE | 2018-09-24 22:30 | PC.NURSE ---
A&OX3. 97%RA. reports dizziness w/movement. slight nausea, pt has a sco patch. denied pain. cms+. oriented pt to the room. NS @100. call light in reach. bed alarm active.
[2018-09-25] VITALS (11 sets, daily range): BP systolic 116–155; BP diastolic 62–95; PULSE 66–82; RESP 16–18; TEMP 36.6–37; O2SAT 95–97
[2018-09-25 00:38] LABS: Appearance Urine UA CLEAR; Bilirubin Urine UA NEGATIVE (NEGATIVE); Color Urine UA YELLOW; Glucose Urine UA NEGATIVE (Negative); Ketones Urine UA NEGATIVE (NEGATIVE); Leukocyte Esterase Urine UA NEGATIVE (NEGATIVE); Nitrite Urine UA NEGATIVE (Negative); Occult Blood Urine UA NEGATIVE (Negative); Protein Urine UA NEGATIVE (Negative); Urobilinogen Urine UA 0.2 E.U./dL (0.2)
[2018-09-25 05:52] LABS: Cholesterol 250 mg/dL (140-199); HDL Cholesterol 38 mg/dL (40-60); LDL Cholesterol Calculated 171 mg/dL (<100); Triglycerides 205 mg/dL (35-150)
[2018-09-25 05:53] LABS: BUN Creatinine Ratio 12.9 (6-22); Blood Urea Nitrogen 9 mg/dL (7-17); Carbon Dioxide 26 mmol/L (22-32); Chloride 108 mmol/L (98-107); Estimated Glomerular Filt Rate > 60.0 mL/min (>60); Glucose 109 mg/dL (80-110); HEMOLYSIS < 15 (0-50); Potassium 3.9 mmol/L (3.4-5.1); Sodium 140 mmol/L (137-145)
--- NOTE | 2018-09-25 06:26 | PC.NURSE ---
Pt able to sleep noc shift. Denies N/V but c/o dizziness when she turns her head when laying flat in bed. Pt voiding quantities sufficient clear yellow using bedpan. Hypoactive BTs. Tolerating IVF well. NSR on telemetry, very rare PVC. LS clear.
[2018-09-25] MEDS: ENOXAPARIN 40 MG/0.4 ML SYRINGE SUBCUT (09:57)
[2018-09-25] MEDS: hydroCHLOROthiazide 25 MG TABLET PO (09:57)
[2018-09-25] MEDS: MECLIZINE HCL 12.5 MG TABLET 25 MG PO ×2 (09:57→17:16)
[2018-09-25] MEDS: ASPIRIN EC 81 MG TABLET PO (09:57)
--- NOTE | 2018-09-25 12:15 | PT.IIE ---
Addendum entered and electronically signed by Laura Jackson, PT 09/25/18 17:52: Assessment: Clinical exam suggests Meniere's episode or a labyrinthitis. I can not fully rule out BPPV at this time but her symptoms indicate she has more than BPPV at this time. It is unusual to have a severe Meniere's episode more than 20 years after diagnosis but possible. Pt also has ringing in her right ear and decreased hearing which are characteristics of Meniere's disease. Her symptoms are less severe than yesterday but dizziness and decreased balance still are affecting her mobility and gait. She compensates well with fWW and by limiting her head motions during this visit. I will follow-up later today for further vestibular treatment. Pt fatigued and nauseated at the end of this visit. Original Note: Surgical History (Last Reviewed 09/24/18 @ 22:29 by YAHIR Zambrano) History of (Acute) Medical History (Last Reviewed 09/24/18 @ 22:29 by YAHIR Zambrano) Current smoker (Acute) Meniere disease (Acute) Physical Therapy Inpatient Evaluation/Re-Eval M1 PT/OT-IP Prior Functional Status Start: 09/25/18 16:25 Freq: NEEDED Status: Active Protocol: Document 09/25/18 12:15 DLM (Rec: 09/25/18 17:40 DLM [email or web address]) Medical Review Prior Functional Status Medical History Reviewed Yes Diet/Fluid Consistency Regular Communication WNL Mobility and Gait Independent without device, community distances Activities of Daily Living and IADL's Independent Prior Functional Level (Other details) Spouse is in good health and can assist as needed, also has a supportive Son per pt Social History Household Members spouse Living Arrangements House Home Equipment Straight Cane Employment Status Retired Additional Social History Comment worked as caregiver in dementia/alzheimers unit M2 PT-IP Current Condition Start: 09/25/18 17:23 Freq: NEEDED Status: Active Protocol: Document 09/25/18 12:15 DLM (Rec: 09/25/18 17:40 DLM [email or web address]) Physical Therapy Current Condition Current Condition Evaluation Date 09/25/18 Treatment Diagnosis Dizziness, impaired balance and gait Onset Date 09/24/18 Precautions Other Precautions hx of Meniere's M3 PT-IP Subjective Start: 09/25/18 17:23 Freq: NEEDED Status: Active Protocol: Document 09/25/18 12:15 DLM (Rec: 09/25/18 17:40 DL [email or web address]) Subjective Physical Therapy Visit Type Type Initial Evaluation Visit Start Time 12:15 Visit Stop Time 13:00 Total Visit Minutes 45 Number of PENSION ADMINISTRATOR Visits 0 Physical Therapy Visit Comments Patient Comments She gets dizzy when she moves, rolls over in bed, moves her head. She reports sudden onset of spinning vertigo at home. She has hx of tinnitus, decreased hearing right ear and mild dizziness daily. She has never had an episode of dizziness like this. She was diagnosed with Meniere's more than 20 years ago. Her initial episode was fullness in her right ear and decreased hearing. She saw a specialist who did testing and made the diagnosis of Meniere's. She was told nothing could be done for her so she has not had any further medical intervention for her Meniere's . Patient Goals She wants to be able to go home. She has a family green party she wants to be able to attend tomorrow. Therapy Pain Assessment Pain When Pain Assessed During Mobility Pain Present Pain Present Pain Reported Location Posterior Neck Intensity 4 Scale Used Numeric (1 - 10) Description Aching Chronic Pain Behaviors Wincing M4 PT-IP Mobility and Gait Start: 09/25/18 17:23 Freq: NEEDED Status: Active Protocol: Document 09/25/18 12:15 DLM (Rec: 09/25/18 17:40 DL [email or web address]) PT-Bed Mobility Assessment Rolling Type of Rolling Bilateral Level of Assist Independent Supine to Sit Supine to Sit Independent Sit to Supine Sit to Supine Independent Scooting Scooting to Edge of Bed Independent Scooting Up and Down in Bed Independent PT-Transfer Assessment Sit to and From Stand Sit to and from Stand Contact Guard Assistance Minimal Assistance Equipment Transfer Assistive Device None Transfers Transfer Destination Bed Transfer Technique Stand Step Pivot Transfer Ability Level of Assist Standby Assistance Contact Guard Assistance Comments Mobility Comments episodes of loss of balance with sudden head motions especially looking down, vertigo with rolling in bed with right stronger than left. No nystagmus observed on left but rotary (right) nystagmus observed on right side. Symptoms resolved with rest break. Dizziness with supine to sit but none sit to sidelying bilaterally. Gait Assessment Gait Gait Assistance Required: Minimum Assistance Distance (Feet) 30 Assistive Devices Assistive Device None Factors Limiting Gait Function Factors Limiting Gait Function Poor Balance Comments Gait Comments dizziness during gait with decreased balance, better when head still and moving slower. Trialed use of FWW and pt safer with fWW use for improved balance. PT-Balance Assessment Balance Tests Single Limb Standing right 10 sec, left 5 sec Romberg no losses of balance Comments Other Balance Tests/Deviations/Treatment noted improvement in left : single limb standing balance with a little training this visit M5 PT-IP Objective Assessments Start: 09/25/18 17:23 Freq: NEEDED Status: Active Protocol: Document 09/25/18 12:15 DLM (Rec: 09/25/18 17:40 DLM [email or web address]) Orientation Orientation/Cognition Level of Alertness Alert Orientation Name Age Birthday Month Date Year Day of Week Place Situation Language Function Ability No Deficits Noted Safety Awareness Understands Safety Issues Memory Description No Deficits Noted Gross Range of Motion Upper Extremity ROM Assessment Within Functional Limits Lower Extremity ROM Assessment Within Functional Limits Strength Upper Extremity Strength Assessment Within Functional Limits Lower Extremity Strength Assessment Within Functional Limits Coordination Assessment Gross Coordination Gross Coordination WNL Assessment Finger to Nose Test Normal Performance Foot Tapping Test Normal Performance Sensation Assessment Sensation Gross Sensation WNL Muscle Tone Muscle Tone WNL Yes Other Assessments Other Other Assessments VOR is WNL without dizziness, visual tracking is WNL without dizziness. When pt back in supine she reports her symptoms are better in bed, more dizziness when up. Mild nausea with activity but no vomiting. M6 PT-IP Treatment Start: 09/25/18 17:23 Freq: NEEDED Status: Active Protocol: Document 09/25/18 12:15 DLM (Rec: 09/25/18 17:40 DLM [email or web address]) Physical Therapy Treatment Education Education Provided Safety Other Treatments Other Treatment Performed educated pt in compensations to use to manage her dizziness at this time including moving slower, decreased head motions when up moving, use fWW for stability M7 PT-IP Assessment and Plan Start: 09/25/18 17:23 Freq: NEEDED Status: Active Protocol: Document 09/25/18 12:15 DLM (Rec: 09/25/18 17:40 DLM [email or web address]) PT Summary Assessment and Plan Potential Rehabilitation Potential Good Status of Condition at Evaluation Evolving Summary Impairments Balance Transfers Gait Activity Tolerance Goals Bed Mobility Goal Independent Transfer Goal Independent Gait Goal Independent Gait Distance 150 feet Days to Meet Goals 3 Frequency of Treatment Frequency Of Treatment Twice a Day Treatment Plan Physical Therapy Treatment Plan Bed Mobility Training Transfer Training Gait Training Balance Retraining Discharge Planning Neuromuscular Re-ed Other Recommendations and Next Treatment vestibular compensation Focus Recommendations To Nursing Amount of Assist Needed 1 Person Assist Discharge Recommendations PT Discharge Recommendations Home with Assistance Outpatient PT Other Discharge Recommendations out-pt PT for vestibular rehab Equipment Needed for Home Before assess for need of FWW at Discharge discharge
--- NOTE | 2018-09-25 15:30 | PT.IPTN ---
Physical Therapy Treatment Note M2 PT-IP Current Condition Start: 09/25/18 17:23 Freq: NEEDED Status: Active Protocol: Document 09/25/18 12:15 DLM (Rec: 09/25/18 17:40 DLM [email or web address]) Physical Therapy Current Condition Current Condition Evaluation Date 09/25/18 Treatment Diagnosis Dizziness, impaired balance and gait Onset Date 09/24/18 Precautions Other Precautions hx of Meniere's M3 PT-IP Subjective Start: 09/25/18 17:23 Freq: NEEDED Status: Active Protocol: Document 09/25/18 15:30 DLM (Rec: 09/25/18 17:52 DLM [email or web address]) Subjective Physical Therapy Visit Type Type Treatment Note Visit Start Time 15:30 Visit Stop Time 15:45 Total Visit Minutes 15 Number of ASSOCIATE THEATRE PROFESSOR Visits 0 Physical Therapy Visit Comments Patient Comments She reports less dizziness at this time. With discussion she feels she needs to stay in hospital tonight with plan to discharg home tomorrow. She still hopes to go to [facility] tomorrow night at 5. Therapy Pain Assessment Pain When Pain Assessed During Mobility Pain Present Pain Present Pain Reported Location Posterior Neck Intensity 4 Scale Used Numeric (1 - 10) Description Aching Chronic Pain Behaviors Wincing M4 PT-IP Mobility and Gait Start: 09/25/18 17:23 Freq: NEEDED Status: Active Protocol: Document 09/25/18 15:30 DLM (Rec: 09/25/18 17:52 DLM [email or web address]) PT-Bed Mobility Assessment Supine to Sit Supine to Sit Independent Sit to Supine Sit to Supine Independent Scooting Scooting to Edge of Bed Independent PT-Transfer Assessment Sit to and From Stand Sit to and from Stand Standby Assistance Use of Upper Extremities Equipment Transfer Assistive Device None Front Wheeled Walker Transfers Transfer Destination Bed Toilet Transfer Technique Stand Step Pivot Transfer Ability Level of Assist Standby Assistance Use of Upper Extremities Comments Mobility Comments educated her in compensations to manage dizziness during mobility, noted less dizziness /vertigo when getting in/out of bed this visit compared to earlier today, up to toilet this visit with good tolerance , no nausea with activity at this time, pt reports feeling fatigued Gait Assessment Gait Gait Assistance Required: Standby Assistance Distance (Feet) 120 Assistive Devices Assistive Device Front Wheeled Walker Factors Limiting Gait Function Factors Limiting Gait Function Decreased Activity Tolerance Poor Balance Comments Gait Comments gait in [place] with FWW without Loss of balance, compensations used with decreased head motions and slower pace. Performed gait trial in her room without device and pt able to ambulate with CG assist again using compensations. M5 PT-IP Objective Assessments Start: 09/25/18 17:23 Freq: NEEDED Status: Active Protocol: Document 09/25/18 12:15 DLM (Rec: 09/25/18 17:40 DLM [email or web address]) Orientation Orientation/Cognition Level of Alertness Alert Orientation Name Age Birthday Month Date Year Day of Week Place Situation Language Function Ability No Deficits Noted Safety Awareness Understands Safety Issues Memory Description No Deficits Noted Gross Range of Motion Upper Extremity ROM Assessment Within Functional Limits Lower Extremity ROM Assessment Within Functional Limits Strength Upper Extremity Strength Assessment Within Functional Limits Lower Extremity Strength Assessment Within Functional Limits Coordination Assessment Gross Coordination Gross Coordination WNL Assessment Finger to Nose Test Normal Performance Foot Tapping Test Normal Performance Sensation Assessment Sensation Gross Sensation WNL Muscle Tone Muscle Tone WNL Yes Other Assessments Other Other Assessments VOR is WNL without dizziness, visual tracking is WNL without dizziness. When pt back in supine she reports her symptoms are better in bed, more dizziness when up. Mild nausea with activity but no vomiting. M6 PT-IP Treatment Start: 09/25/18 17:23 Freq: NEEDED Status: Active Protocol: Document 09/25/18 15:30 DLM (Rec: 09/25/18 17:52 DLM [email or web address]) Physical Therapy Treatment Education Education Provided Safety Other Treatments Other Treatment Performed education for vestibular compensation to manage dizziness with slower pace of movements and limit head motions during gait, Soft tissue mobilization performed on cervical area in sitting to assist with pain management. M7 PT-IP Assessment and Plan Start: 09/25/18 17:23 Freq: NEEDED Status: Active Protocol: Document 09/25/18 15:30 DLM (Rec: 09/25/18 17:52 DLM [email or web address]) PT Summary Assessment and Plan Summary Assessment Summary Clinically her symptoms are more consistent with Meniere's than a typical BPPV. Her dizziness/vertigo has improved at this time. Her gait and functional balance show improvement. She is a poor candidate for [facility] testing if she does have Meniere's due to the high risk of flaring up her dizziness/ nausea. Since her symptoms are improving recommend she continue to use compensations for functionally mobility and then follow-up with out-pt PT for any lingering dizziness or balance impairments. I anticipate her symptoms will be further improved tomorrow and likely be able to discharge home without a device. She does own a cane if it is needed at discharge. Will plan for PT to follow-up tomorrow morning for mobility and gait with plan for discharge home. Goals Bed Mobility Goal Independent Transfer Goal Independent Gait Goal Independent Gait Distance 150 Days to Meet Goals 3 Frequency of Treatment Frequency Of Treatment Twice a Day Treatment Plan Physical Therapy Treatment Plan Bed Mobility Training Transfer Training Gait Training Balance Retraining Discharge Planning Neuromuscular Re-ed Recommendations To Nursing Amount of Assist Needed 1 Person Assist Discharge Recommendations PT Discharge Recommendations Home with Assistance Outpatient PT Other Discharge Recommendations out-pt PT for vestibular rehab
--- NOTE | 2018-09-25 15:54 | CM.DANOTE ---
Discharge Planning/Care Management DCP: assessment: initiated: Case received, EMR reviewed. Documentation reveals that pt is a 68 year old female who admitted last night to care of the hospitalist team. Dr. Mcclain is following her today, her note is not yet available. Payer: Medicare and [facility] PCP: not listed on face sheet/unknown at this time. Admission status: OBS: thus far: confirmed by [facility] E[facility]. Pt is admitted with s/s vertigo and treatment that has failed in the outpt setting. Full dx and tx plan is in process. P: due to lateness of hour and caseload triage today will leave for DCP team on tomorrow to check in with pt and continue to DCP assessment process. CM Discharge Assessment Start: 09/25/18 15:53 Freq: Status: Active Protocol: Document 09/25/18 15:54 ITV (Rec: 09/25/18 15:54 ITV [email or web address]) Discharge Planning Assessment Advance Directives? No History Provided By Medical Record Prior Living Arrangements House Household Members spouse Review Status In Process
--- NOTE | 2018-09-25 16:32 | OT.IP.TRT ---
Occupational Therapy Treatment Note M3 OT- IP Subjective and Pain Start: 09/25/18 16:25 Freq: Status: Active Protocol: Document 09/25/18 16:26 [facility] (Rec: 09/25/18 16:32 [facility] [email or web address]) OT- Subjective Occupational Therapy Visit Type Type Administrative Note Notes Approached pt for OT eval, pt states has supportive and feeling better and able to do all her ADL's. At this time pt does not want to be seen for OT and to just focus on mobility needs with PT. Therefore discharge OT eval orders.
[2018-09-25] MEDS: IBUPROFEN 600 MG TABLET PO (17:15)
--- NOTE | 2018-09-25 17:41 | P.DS_ITS ---
History of Present Illness Date Patient Seen: 09/24/18 Chief complaint: Vertigo Narrative: Written by Cabrera SINCLAIR: Ms. Danya Baez is a 68-year-old female with her only prior medical history being Meniere's disease who presents to the ER for severe vertigo with associated nausea with any movement. The patient reports she has a history of daily vertigo upon 1st getting up in the morning that lasts typically a few seconds but definitely less than 1 minute after which she go about her day and normal activities without further episodes. She states today she woke with her vertigo but states it was much worse than typical and lasted longer but resolved spontaneously. She went about her day without further episodes however went for hair appointment and when she was laid back in the chair she experienced severe onset of vertigo with associated nausea and vomiting prompting call to EMS. The patient states that after the onset of vertigo she developed headache she describes at the back of her head. She also has dull neck pain but states this is been present for over a month but when she rubs her neck she will see stars. She denies history of migraines or complaints of visual or hearing changes, has no ataxia or complaints of orthostasis. She has had no head trauma and denies fevers or chills, no recent cold symptoms, nasal congestion or sore throat. She denies chest pain or palpitations and has no shortness of breath cough or wheezing. She has had no abdominal pain and nausea started today only with the vertigo. She denies constipation or diarrhea and has no dysuria. Upon arrival in the ER the patient was afebrile with a temperature of 97.9?, heart rate of 66, blood pressure 160/77, respirations of 18 with a room air oxygenation at 97%. In the ER the patient underwent head CT that was unremarkable with no findings for intercranial pathology. She also had a chest x-ray which demonstrated a mildly enlarged heart but no indications of heart failure. Laboratory studies find a normal CBC with a white count of 10.8 with no shift, hemoglobin of 15.5, hematocrit 45.4, platelets of 197. Her electrolytes are within normal range in she has good renal function with a BUN of 11 and creatinine 0.8 with a nonfasting glucose of 109. She has a total bilirubin of 0.6, AST of 32, ALT of 38 and mildly elevated alkaline phosphatase of 153. Troponin was evaluated which is found to be ill less than 0.012. Twelve leak EKG finds a normal sinus rhythm without evidence of ST or T-wave ischemic changes. Her PT is 11.8 with an INR of 1.0. Patient has received meclizine without improvement followed by Latricia and Ativan without changes in presentation. She had a scopolamine patch applied and an Marly maneuver performed. Neurological exam reported by the ED provider is negative for any localizing symptoms. Discharge Providers Date of admission: 09/24/18 20:16 Discharge Date: 09/25/18 Consults: 09/24/18 20:43 Consult to Occupational Therapy Evaluate & Treat Comment: Physician Instructions: Evaluate and treat Consult to Physical Therapy Evaluate & Treat Comment: severe vertigo, hx of meniere's Physician Instructions: Evaluate and Treat Discharge provider: Gisell Mcclain DO Summary Discharge Diagnosis: 1. Acute on chronic vertigo, present on admission. Improving. 2. Acute nausea and vomiting, present on admission. Resolved. 3. Tobacco dependence, present on admission. Active. Hospital Course: Danya Baez is a 68-year-old female who presented for severe vertigo unresponsive to medications with associated nausea and vomiting provoked by movement. 1. Acute on chronic vertigo, present on admission. Improving. -Patient has prior history of Meniere's disease diagnosed by ENT many years ago without intervention or continuing treatment. She reports daily vertigo upon getting up in the morning that is brief lasting seconds and resolves spontaneously without recurrence through the day. -No history of trauma, URI, viral infection or other triggering event that precipitated exacerbation of symptoms. Patient has been afebrile with no recent complaints of illness and has had no vision or hearing changes, no ataxia or lateralizing symptoms. No history of migraines. -Differential diagnosis includes: Likely acute flare/exacerbation of Meniere's disease and some component of BPPV. Less likely are vestibular migraine, labyrinthitis, vestibulitis. CVA ruled out. -CT brain without contrast and CTA head and neck did not demonstrate any acute intracranial abnormalities or large vessel occlusion, hemodynamically significant vascular stenosis, vascular dissection or aneurysm. -MR stroke protocol did not demonstrate any acute intracranial abnormalities. -Continued serial neurological checks. -Scopolamine patch is in place from ED. -Continued meclizine 25 mg every 6 hours as needed for dizziness, lorazepam 1 mg every 6 hours as needed for dizziness. Started hydrochlorothiazide 25 mg daily to treat Meniere's disease. Provided prescription for hydrochlorothiazide 25 mg daily and meclizine 25 mg every 6 hours as needed for dizziness. -Implemented low-sodium diet and provided handout. Patient endorses high sodium intake. -Consulted physical therapy who evaluated patient and believe this to be a Meniere's flare and possibly BPPV. Marly maneuver failed in ED and did not repeat due to likelihood of exacerbating Meniere's flare. Recommended continued vestibular rehabilitation outpatient. Provided patient with FWW. -Recommended referral to neurology for evaluation and treatment outpatient. 2. Acute nausea and vomiting, present on admission. Resolved. -Nausea is associated with vertigo and precipitated by movement. -Continued zofran 8 mg every 6 hours as needed for nausea. -Received 1 L NS in ED. Continued IV fluids until adequately hydrated. 3. Tobacco dependence, present on admission. Active. -Patient endorses history of smoking 1 pack per 2 weeks for 5 years. -Discussed smoking in relation to risks associated with a family history cardiovascular and cerebrovascular disease and cessation. Patient is entertaining thought of quitting. Status at Discharge Functional status at discharge: independent ambulation Overall status at discharge: patient is progressing back to baseline Exam Vital Signs (past 8 hours): - 09/25/18 09:54 09/25/18 11:00 09/25/18 11:48 Temperature 98.6 F Pulse Rate 69 Pulse Rate [Orthostatic Lying] 66 Pulse Rate [Orthostatic Sitting] 76 Pulse Rate [Orthostatic Standing] 82 Respiratory Rate 16 Blood Pressure 128/62 Blood Pressure [Orthostatic Lying] 136/82 Blood Pressure [Orthostatic Sitting] 144/91 H Blood Pressure [Orthostatic Standing] 155/95 H Pulse Oximetry 95 95 09/25/18 15:00 09/25/18 16:00 Temperature 97.9 F Pulse Rate 69 Pulse Rate [Orthostatic Lying] Pulse Rate [Orthostatic Sitting] Pulse Rate [Orthostatic Standing] Respiratory Rate 16 Blood Pressure 116/67 Blood Pressure [Orthostatic Lying] Blood Pressure [Orthostatic Sitting] Blood Pressure [Orthostatic Standing] Pulse Oximetry 95 95 Oxygen Delivery Method Room Air Oxygen Flow Rate 0 Narrative Exam Narrative: General: Older female lying in bed and in no acute distress, well-developed, well-nourished, appropriately interactive. HEENT: Normocephalic, atraumatic. External ears without defect. Pupils equal, round, and reactive to light. Anicteric sclerae, moist conjunctivae, and no lid lag. Oropharynx free of erythema and cobble stoning with moist mucosa. Neck: Supple with full range of motion. No jugular venous distension. No bruits. No lymphadenopathy or thyromegaly. Cardiovascular: Regular rate and rhythm without murmurs, rubs, or gallops appreciated. Pulmonary: Clear to auscultation bilaterally without crackles, wheezes, or rhonchi. Normal respiratory effort with no use of accessory muscles. Abdomen: Bowel tones present. Soft, nontender, nondistended. No hepatosplenome charleen or masses appreciated. Extremities: No clubbing, cyanosis, or edema. Skin: Normal temperature, turgor, and texture; no rash, ulcers, or subcutaneous nodules appreciated. Neurological: Cranial nerves grossly intact. Normal muscle strength, tone, and bulk. Reflexes, coordination, and sensory function within normal limits. No known gait impairment. No nystagmus. Cerebellar function intact. Psychiatric: Normal mood and affect. Alert and oriented to person, place, and time. Objective Labs Result Diagrams: 09/24/18 14:50 09/25/18 05:20 Labs: Laboratory Results - last 24 hr 09/25/18 09/25/18 09/25/18 00:15 05:20 05:20 Sodium 140 Potassium 3.9 Chloride 108 H Carbon Dioxide 26 BUN 9 Creatinine 0.70 Estimated GFR > 60.0 BUN/Creatinine Ratio 12.9 Glucose 109 Calcium 9.0 Magnesium 2.0 Triglycerides 205 H Cholesterol 250 H LDL Cholesterol, Calc 171 H HDL Cholesterol 38 L TSH Urine Color Yellow Urine Appearance Clear Urine pH 7.0 Ur Specific [place] 1.010 Urine Protein Negative Urine Glucose (UA) Negative Urine Ketones Negative Urine Occult Blood Negative Urine Nitrate Negative Urine Bilirubin Negative Urine Urobilinogen 0.2 Ur Leukocyte Esterase Negative 09/25/18 05:20 Sodium Potassium Chloride Carbon Dioxide BUN Creatinine Estimated GFR BUN/Creatinine Ratio Glucose Calcium Magnesium Triglycerides Cholesterol LDL Cholesterol, Calc HDL Cholesterol TSH 1.70 Urine Color Urine Appearance Urine pH Ur Specific [place] Urine Protein Urine Glucose (UA) Urine Ketones Urine Occult Blood Urine Nitrate Urine Bilirubin Urine Urobilinogen Ur Leukocyte Esterase Discharge Plan Discharge Plan Patient Disposition: Home Discharge comment: You are being discharged home. You are likely having an exacerbation of your Meniere's disease and may possibly have a component of BPPV (benign paroxysmal positional vertigo). Please follow-up with your primary care physician, Malena SINCLAIR, in the next 1 week regarding your hospitalization. Recommend referral to Neurology for further specialized evaluation. You have been prescribed hydrochlorothiazide 25 mg daily which is a diuretic to treat your Meniere's disease. Please consume a low-sodium diet less than 2 g or 2000 mg per day. You were also prescribed meclizine or Antivert 25 mg every 6 hours as needed for dizziness and on dances drawn or Zofran 4 mg every 8 hours as needed for nausea and vomiting. You were provided a prescription for vestibular rehabilitation/physical therapy but may require a referral through your PCP. Discharge Med Rec/Prescriptions Prescriptions: New meclizine 12.5 mg Tablet 25 mg PO Q6HR PRN (Reason: Vertigo) Qty: 60 RF: 0 hydrochlorothiazide 25 mg Tablet 25 mg PO DAILY Qty: 30 RF: 0 ondansetron HCl 4 mg tablet 4 mg PO Q8HR PRN (Reason: nausea and vomiting) Qty: 30 RF: 0 Follow up/Referrals: Malena Dobson ARNP [Non-Staff] - 1 Week Provider Discharge Instructions Diet: Low-sodium Activity: Activity as tolerated with walker. Visit Report/Discharge Packet Instructions: Benign Paroxysmal Positional Vertigo, DI for Meniere's Disease, Low-Sodium Diet Visit Report Forms: Stroke Signs & Symptoms Discharge Data Attending Provider: Cabrera Holloway Admit Date/Time: 09/24/18 20:16 Discharges patient from system. Discharge Date/Time: 09/25/18 18:17
--- NOTE | 2018-09-25 18:15 | PT.IPTN ---
Physical Therapy Treatment Note M2 PT-IP Current Condition Start: 09/25/18 17:23 Freq: NEEDED Status: Active Protocol: Document 09/25/18 12:15 DLM (Rec: 09/25/18 17:40 DLM [id number]) Physical Therapy Current Condition Current Condition Evaluation Date 09/25/18 Treatment Diagnosis Dizziness, impaired balance and gait Onset Date 09/24/18 Precautions Other Precautions hx of Meniere's M3 PT-IP Subjective Start: 09/25/18 17:23 Freq: NEEDED Status: Active Protocol: Document 09/25/18 18:00 HH (Rec: 09/25/18 18:15 HH [id number]) Subjective Physical Therapy Visit Type Type Treatment Note Visit Start Time 18:00 Visit Stop Time 18:10 Total Visit Minutes [address] Mcclain requested dispensing a FWW for pt upon d/c for safety and mobility. M4 PT-IP Mobility and Gait Start: 09/25/18 17:23 Freq: NEEDED Status: Active Protocol: Document 09/25/18 15:30 DLM (Rec: 09/25/18 17:52 DLM [email or web address]) PT-Bed Mobility Assessment Supine to Sit Supine to Sit Independent Sit to Supine Sit to Supine Independent Scooting Scooting to Edge of Bed Independent PT-Transfer Assessment Sit to and From Stand Sit to and from Stand Standby Assistance Use of Upper Extremities Equipment Transfer Assistive Device None Front Wheeled Walker Transfers Transfer Destination Bed Toilet Transfer Technique Stand Step Pivot Transfer Ability Level of Assist Standby Assistance Use of Upper Extremities Comments Mobility Comments educated her in compensations to manage dizziness during mobility, noted less dizziness /vertigo when getting in/out of bed this visit compared to earlier today, up to toilet this visit with good tolerance , no nausea with activity at this time, pt reports feeling fatigued Gait Assessment Gait Gait Assistance Required: Standby Assistance Distance (Feet) 120 Assistive Devices Assistive Device Front Wheeled Walker Factors Limiting Gait Function Factors Limiting Gait Function Decreased Activity Tolerance Poor Balance Comments Gait Comments gait in [facility] with FWW without Loss of balance, compensations used with decreased head motions and slower pace. Performed gait trial in her room without device and pt able to ambulate with CG assist again using compensations. M5 PT-IP Objective Assessments Start: 09/25/18 17:23 Freq: NEEDED Status: Active Protocol: Document 09/25/18 12:15 DLM (Rec: 09/25/18 17:40 DLM [email or web address]) Orientation Orientation/Cognition Level of Alertness Alert Orientation Name Age Birthday Month Date Year Day of Week Place Situation Language Function Ability No Deficits Noted Safety Awareness Understands Safety Issues Memory Description No Deficits Noted Gross Range of Motion Upper Extremity ROM Assessment Within Functional Limits Lower Extremity ROM Assessment Within Functional Limits Strength Upper Extremity Strength Assessment Within Functional Limits Lower Extremity Strength Assessment Within Functional Limits Coordination Assessment Gross Coordination Gross Coordination WNL Assessment Finger to Nose Test Normal Performance Foot Tapping Test Normal Performance Sensation Assessment Sensation Gross Sensation WNL Muscle Tone Muscle Tone WNL Yes Other Assessments Other Other Assessments VOR is WNL without dizziness, visual tracking is WNL without dizziness. When pt back in supine she reports her symptoms are better in bed, more dizziness when up. Mild nausea with activity but no vomiting. M6 PT-IP Treatment Start: 09/25/18 17:23 Freq: NEEDED Status: Active Protocol: Document 09/25/18 18:00 HH (Rec: 09/25/18 18:15 HH [id number]) Physical Therapy Treatment Equipment Issued Equipment Type and Company FWW M7 PT-IP Assessment and Plan Start: 09/25/18 17:23 Freq: NEEDED Status: Active Protocol: Document 09/25/18 15:30 DLM (Rec: 09/25/18 17:52 DLM [email or web address]) PT Summary Assessment and Plan Summary Assessment Summary Clinically her symptoms are more consistent with Meniere's than a typical BPPV. Her dizziness/vertigo has improved at this time. Her gait and functional balance show improvement. She is a poor candidate for [facility] [place] testing if she does have Meniere's due to the high risk of flaring up her dizziness/ nausea. Since her symptoms are improving recommend she continue to use compensations for functionally mobility and then follow-up with out-pt PT for any lingering dizziness or balance impairments. I anticipate her symptoms will be further improved tomorrow and likely be able to discharge home without a device. She does own a cane if it is needed at discharge. Will plan for PT to follow-up tomorrow morning for mobility and gait with plan for discharge home. Goals Bed Mobility Goal Independent Transfer Goal Independent Gait Goal Independent Gait Distance 150 Days to Meet Goals 3 Frequency of Treatment Frequency Of Treatment Twice a Day Treatment Plan Physical Therapy Treatment Plan Bed Mobility Training Transfer Training Gait Training Balance Retraining Discharge Planning Neuromuscular Re-ed Recommendations To Nursing Amount of Assist Needed 1 Person Assist Discharge Recommendations PT Discharge Recommendations Home with Assistance Outpatient PT Other Discharge Recommendations out-pt PT for vestibular rehab
--- NOTE | 2018-09-25 18:15 | PC.NURSE ---
Discharge Note Pt A&O, VSS, RA, complaint of headache, medicated w/ Advil. Discharge instructions/prescriptions/belongings given to pt. Questions/concerns answered. Pt taken down via wheelchair to personal vehicle w/ family.
== END 2018-09-25 18:17 | disposition home or self-care (01) ==
LOC: ED 13:57 → AC 20:17
PROVIDERS: Admitting Provider Nurse Practitioner Adult Health; Emergency Provider Nurse Practitioner Family; Visit Provider Nurse Practitioner Adult Health
DX: R42 Dizziness and giddiness (principal); R11.2 Nausea with vomiting, unspecified; F17.210 Nicotine dependence, cigarettes, uncomplicated; E86.0 Dehydration
CPT/HCPCS: 36415; 36591; 70450; 70496; 70498; 70548; 70553; 71045; 80048; 80053; 80061; 81003; 83735; 84443; 84484; 85025; 85610; 93005; 96361; 96372; 96374; 96375; 97112; 97116; 97162; 97535; 99283; 99285; G0378; A9579; J1650; J2060; J2405